=== PATIENT | female | born 1990 | race African-American/Black ===

== ENCOUNTER 2017-03-03 18:57 | Emergency (ER) | payer MEDICAID ==
[~2017-03-03] VITALS: Ht 170.2 cm; Wt 86.2 kg
[2017-03-03 19:04] VITALS: BP 161/91
== END 2017-03-03 19:37 | disposition home or self-care (01) ==
LOC: ER 19:07
DX: O26.892 Other specified pregnancy related conditions, second trimester (principal); L02.426 Furuncle of left lower limb; L02.425 Furuncle of right lower limb; Z3A.19 19 weeks gestation of pregnancy; Z79.82 Long term (current) use of aspirin
CPT/HCPCS: 99283; A4606; Z7610

== ENCOUNTER 2017-04-27 00:22 | Emergency (ER) | payer MEDICAID ==
--- NOTE | 2017-04-27 00:35 | NUR ---
PT ADVISED WE DO NOT HAVE AN OB DEPARTMENT IN THIS HOSPITAL AND PT STATES SHE WILL GO SOMEWHERE ELSE
== END 2017-04-27 00:37 | disposition left against medical advice (07) ==
LOC: ER 00:30
DX: Z53.21 Procedure and treatment not carried out due to patient leaving prior to being seen by health care provider (principal)

== ENCOUNTER 2017-07-18 20:05 | Inpatient (IN) | payer MEDICAID, OTHER ==
[~2017-07-18] VITALS: Ht 165.1 cm; Wt 91.6 kg
--- NOTE | 2017-07-18 21:15 | NUR ---
PT BB SELF FROM HOME C/C OF "HIGH BLOOD PRESSURE". + NAUSEA, -VOMITTING. PT IS AAOX4. PT STATES PRESSURE LIKE HEADACHE 08/22. PT STATES SHE HAS BEEN SEEING HER PMD WHO UPPED THE DOSAGE OF HER BLOOD PRESSURE MEDICATIONS BUT PT STATES HER BLOOD PRESSURE IS STILL NOT CONTROLLED. RESP EVEN AND UNLABORED. NO S/S OF ACUTE DISTRESS NOTED. SKIN WNL. PT PLACED ON MONITOR AND POX. PT SAFETY AND COMFORT MEASURES IN PLACE. SEIZURE PRECATIONS IN PLACE. AWAITING MD FOR EVAL. WILL CONTINUE TO MONITOR PT.
[2017-07-18] MEDS ORDERED: hydrALAZINE HCL IV 20 MG VIAL ONE (21:46)
[2017-07-18 21:59] LABS: APPEARANCE,URINE CLEAR (CLEAR); BILIRUBIN,URINE NEGATIVE (NEGATIVE); BLOOD, URINE 3+ Ery/uL (NEGATIVE); COLOR,URINE YELLOW (YELLOW); KETONES,URINE NEGATIVE (NEGATIVE); LEUKOCYTE ESTERASE ,URINE TRACE (NEGATIVE); NITRITE, URINE NEGATIVE (NEGATIVE); PROTEIN,URINE NEGATIVE (NEGATIVE); UGLUCOSE NEGATIVE (NEGATIVE); UROBILINOGEN,URINE 0.2 EU/dL (0.2)
[2017-07-18] MEDS ORDERED: hydrALAZINE HCL IV 20 MG VIAL IV ONE (22:00)
--- NOTE | 2017-07-18 22:01 | NUR ---
Patient is resting comfortably in bed with eyes open. No S/S of distress noted. Will continue to monitor pt. VSS
[2017-07-18 22:12] LABS: INR 1.03 (0.87-1.13)
[2017-07-18 22:13] LABS: ALBUMIN 3.2 g/dL (3.4-5.0); BILIRUBIN,DIRECT 0.1 mg/dL (0.0-0.2); BILIRUBIN,TOTAL 0.5 mg/dL (0.2-1.0); CALCIUM, SERUM 9.2 mg/dL (8.5-10.1); CREATININE 0.9 mg/dL (0.6-1.3); POTASSIUM 3.7 mmol/L (3.5-5.1); TOTAL PROTEIN, SERUM 7.4 g/dL (6.4-8.2)
[2017-07-18 22:20] LABS: BASOPHILS % (AUTO) 0.2 % (0.0-2.0); EOSINOPHILS % (AUTO) 1.3 % (0.0-6.0); HEMATOCRIT 36 % (33-45); LYMPHOCYTES # (AUTO) 3.4 /CMM (0.8-4.8); LYMPHOCYTES % (AUTO) 47.8 % (20.0-44.0); MEAN CORPUSCULAR HGB CONC 33 g/dl (31.0-36.0); MEAN CORPUSCULAR VOLUME 91 fL (82-100); MONOCYTES # (AUTO) 0.5 /CMM (0.1-1.30); MONOCYTES % (AUTO) 6.6 % (2.0-12.0); NEUTROPHILS # (AUTO) 3.1 /CMM (1.8-8.9); NEUTROPHILS % (AUTO) 44.1 % (43.0-81.0); PLATELET COUNT (AUTO) 346 /CMM (150-450); RDW COEFFICIENT OF VARIATION 13.3 (11.5-15.0); RED BLOOD CELL COUNT(AUTO) 3.95 MIL/uL (4.0-5.2); WHITE BLOOD COUNT (AUTO) 7.1 K/uL (4.3-11.0)
[2017-07-18 22:28] LABS: BACTERIA,URINE Few /HPF (None Seen); SQUAMOUS EPITHELIAL CELL,UR Few /HPF (None Seen)
[2017-07-18 22:29] LABS: MUCUS,URINE Few /LPF (None Seen)
[2017-07-19] MEDS ORDERED: hydrALAZINE HCL IV 20 MG VIAL IV ONE
[2017-07-19] MEDS ORDERED: ACETAMINOPHEN ES 500 MG TABLET ONE (00:07)
--- NOTE | 2017-07-19 00:20 | NUR ---
Patient is resting comfortably in bed with eyes closed. Easily aroused. VSS
[2017-07-19] MEDS ORDERED: ACETAMINOPHEN 325 MG TABLET PO ONE (00:30)
--- NOTE | 2017-07-19 01:00 | NUR ---
UPDATED BED 101 [facility]
--- NOTE | 2017-07-19 01:17 | NUR ---
REPORT GIVEN TO TODD FOR ADILSON.
[2017-07-19] MEDS ORDERED: LABE200T5 PO (01:20)
--- NOTE | 2017-07-19 01:40 | NUR ---
[facility] WATER PURIFIER OPERATOR NOTES, 26YO FEMALE ADMITTED FROM EMERGENCY DEPARTMENT VIA STRETCHER, ADMITTED UNDER MEDICAL SERVICES OF DR JAJA RAMIREZ MD, WITH DX OF PREECLAMPSIA, SHE IS S/P 07/08/17 PATIENT DENIES ANY OTHER PAS MEDICAL HISTORY, ALERT AND ORIENTED X4 ABLE TO VERBALIZED NEEDS AND CONCERNS, BREATHING EVEN AND UNLABORED, NO SOB/ACUTE DISTRESS NOTED AT THIS TIME, ABDOMEN SOFT AND NONDISTENDED, SKIN DRY, WARM AND INTACT, IV ACCESS IN RIGHT AC #18G, INTACT AND PATENT, AWAITING FOR ORDERS, WILL ADMINISTER MEDICATION ORDERED. PATIENT IN BED, INDEPENDENT WITH MOBILITY, ASSISTANCE PROVIDED AT ALL TIMES, CALL LIGHT W/I REACH, WILL CONTINUE TO MONITOR CLOSELY VS 164/105, 97.7, 18, 0/10/ 98% RA.
[2017-07-19 02:00] VITALS: BP 164/105
[2017-07-19] MEDS ORDERED: hydrALAZINE HCL 50 MG TABLET PO ONE (03:30)
[2017-07-19] MEDS: Magnesium 1GM/D5W 100ML PREMIX 100 ML IV SCH ×4 (03:38→06:34)
[2017-07-19 04:00] VITALS: BP 131/81
[2017-07-19] MEDS ORDERED: ACETAMINOPHEN 325 MG TABLET PO PRN (05:00)
[2017-07-19] MEDS ORDERED: hydrALAZINE HCL 50 MG TABLET PO SCH (05:00)
[2017-07-19] MEDS ORDERED: ONDANSETRON HCL/PF 4 MG/2 ML VIAL IVP PRN (05:00)
[2017-07-19] MEDS ORDERED: ZOLPIDEM TARTRATE 5 MG TABLET PO PRN (05:00)
[2017-07-19] MEDS ORDERED: HYDROCODONE/APAP 10/325MG 1 EA TABLET PO PRN (05:00)
[2017-07-19 06:33] LABS: BASOPHILS % (AUTO) 0.5 % (0.0-2.0); EOSINOPHILS % (AUTO) 1.5 % (0.0-6.0); HEMATOCRIT 38 % (33-45); HEMOGLOBIN 12.7 g/dL (11.5-14.8); LYMPHOCYTES # (AUTO) 2.8 /CMM (0.8-4.8); LYMPHOCYTES % (AUTO) 48.5 % (20.0-44.0); MEAN CORPUSCULAR HGB CONC 34 g/dl (31.0-36.0); MEAN CORPUSCULAR VOLUME 91 fL (82-100); MONOCYTES # (AUTO) 0.4 /CMM (0.1-1.30); MONOCYTES % (AUTO) 7.2 % (2.0-12.0); NEUTROPHILS # (AUTO) 2.5 /CMM (1.8-8.9); NEUTROPHILS % (AUTO) 42.3 % (43.0-81.0); PLATELET COUNT (AUTO) 351 /CMM (150-450); RDW COEFFICIENT OF VARIATION 13.4 (11.5-15.0); RED BLOOD CELL COUNT(AUTO) 4.13 MIL/uL (4.0-5.2); WHITE BLOOD COUNT (AUTO) 5.9 K/uL (4.3-11.0)
--- NOTE | 2017-07-19 06:38 | NUR ---
[facility] RN CLOSING NOTES, PATIENT AWAKE ALERT AND ORIENTED X4 AT THIS TIME, ABLE TO VERBALIZED NEEDS AND CONCERNS, BREATHING EVEN AND UNLABORED, NO SOB/ACUTE DISTRESS NOTED AT THIS TIME, C/O PAIN AND MEDICATION FOR PAIN ADMINISTERED, BP AT THIS TIME 149/86, LAST BAG OF MAGNESIUM INFUSING AT THIS TIME, IV ACCESS IN RIGHT AC #18G, INTACT AND PATENT, NO S/S OF INFILTRATION NOTED, INDEPENDENT WITH MOBILITY, ASSISTANCE PROVIDED AT ALL TIMES, CALL LIGHT W/I REACH, NO SIGNIFICANT CHANGE OF CONDITION THROUGHOUT THE NIGHT, WILL ENDORSE NO ONCOMING NURSE.
[2017-07-19 06:55] LABS: BILIRUBIN,TOTAL 0.5 mg/dL (0.2-1.0); CALCIUM, SERUM 8.8 mg/dL (8.5-10.1); CREATININE 0.7 mg/dL (0.6-1.3); MAGNESIUM 2.7 mg/dL (1.8-2.4); PHOSPHORUS 4.5 mg/dL (2.5-4.9); POTASSIUM 3.5 mmol/L (3.5-5.1)
--- NOTE | 2017-07-19 07:10 | NUR ---
RN INITIAL NOTES: REC'D PT ON BED, A/O X 4, DENIES ANY PAIN/DISCOMFORT AT THIS TIME. ON ROOM AIR, NO SOB. ON TELEMONITOR SR W/ HR 77 BPM. HAS R AC G18, SL, PATENT & INTACT W/ NO S/SX OF INFECTION/INFILTRATION NOTED. NO BLEEDING NOTED ON THE CS SITE. PER PT SHE IS HAVING ONLY VAGINAL DISCHARGE. PROVIDED COMFORT & SAFETY MEASURES. BED KEPT LOW & IN LOCKED POS. CALL LIGHT PLACED W/IN REACH. WILL CONTINUE TO MONITOR & ATTEND PT NEEDS.
[2017-07-19 08:00] VITALS: BP 126/83
[2017-07-19] MEDS: HYDROCHLOROTHIAZIDE 25 MG TABLET PO SCH ×2 (08:45→09:00)
--- NOTE | 2017-07-19 08:50 | NUR ---
RN NOTES: PT SEEN & EXAMINED BY DR. COLBERT W/ ORDERS TO DC HYDRALAZINE 50 MG PO TID.
[2017-07-19] MEDS ORDERED: LABETALOL HCL (100MG) 100 MG TABLET PO SCH (09:00)
[2017-07-19 12:00] VITALS: BP 137/92
[2017-07-19] MEDS ORDERED: HYDR25TA4 PO (12:14)
--- NOTE | 2017-07-19 13:08 | NUR ---
PREVENTION COORDINATOR NOTES: PT DC'D TO HOME, SELF CARE ORDERED. DC DOCUMENTS PROVIDED & EXPLAINED W/ VERBALIZATION OF UNDERSTANDING. ALL DC DOCUMENTS SIGNED BY THE PT. PER PT ALL BELONGINGS W/ HER. PT REMAINS A/O X 4, DENIES ANY PAIN/DISCOMFORT, VERBALIZED THAT SHE IS FEELING BETTER. IV LINE ACCESS REMOVED, PRESSURE DRESSING APPLIED, NO SIGN OF BLEEDING NOTED. PT REFUSED TO TAKE PHOTO OF HER , DRESSING IS DRY & INTACT. PT IS AMBULATORY W/ STEADY GAIT. PT LEFT FACILITY IN STABLE CONDITION ACCOMPANIED BY AIR EXPORT AGENT. NO CONCERN IDENTIFIED AT THE TIME OF DC.
== END 2017-07-19 13:03 | disposition home or self-care (01) | DRG 561 ==
LOC: ER 20:05 → TELE-TD 07-19 01:04
PROVIDERS: ADMIT Nurse Practitioner Acute Care; ATTEND Nurse Practitioner Acute Care
DX: O16.5 Unspecified maternal hypertension, complicating the puerperium (principal); I16.0 Hypertensive urgency; R51 Headache
CPT/HCPCS: 36415; 71045-TC; 76856-TC; 80048-TC; 80053-TC; 80061-TC; 80076-TC; 81000-TC; 83735-TC; 84100-TC; 84155-TC; 84703-TC; 85025-TC; 85730-TC; 87081-TC; 93307-TC; A4606; J0360; J3475; Z7610